=== PATIENT | male | born 1945 | race Caucasian/White ===

== ENCOUNTER 2017-02-01 05:55 | Day surgery (SDC) | payer MEDICARE, OTHER ==
[~2017-02-01] VITALS: Ht 172.7 cm; Wt 83.9 kg
[~2017-02-01 05:55] MED LIST: ARMOUR THYROID60 MG PO; CYCLOBENZAPRINE5 MG PO; HYDROCODON-ACE1 EA11 PO; LISINOPRIL20 MG PO; LORATADINE10 MG PO; RESTASIS1 DROP OD; TRAMADOL HCL50 MG PO
--- NOTE | 2017-02-01 08:20 | NUR ---
02/01/17 0820 Con Kay ORAL AIRWAY OUT @ 0816 0820 PATIENT OXYGEN TITRATED TO ROOM AIR, PATIENT SITTING UP, SIPS WATER, PASSING AIR FROM RECTUM.
--- NOTE | 2017-02-02 17:13 | OR ---
[facility] [address], [place] [address] Signed DATE OF PROCEDURE: 02/01/17 PREOPERATIVE DIAGNOSIS: Personal history of colonic polyps at age 54. POSTOPERATIVE DIAGNOSES Minimal sigmoid diverticulosis. Distal rectal/proximal anal irritation. Moderate internal and external hemorrhoids. PROCEDURE: Colonoscopy with biopsies of the proximal anus. ESTIMATED BLOOD LOSS: None. INDICATIONS Harshal is a 71-year-old gentleman who is retired out of the [employer]. Around age 54, he had a colonoscopy performed back in [place]. He thinks he had colonic polyps removed. He lives down in [place], but comes up to [place] every 4-6 weeks to visit his sister. He also comes to see his primary care provider. He was asked to see me for a colonoscopy. He said he has no lower GI complaints. There is no family history of colon cancer or polyps. In the office, I gave Harshal a pamphlet on colonoscopy. We looked at that together along with the risks including, but not limited to gas bloating, crampy abdominal pain, bleeding, perforation requiring surgery, and missed diagnosis. In addition, we reviewed the need for IV sedation. He does take daily Hydrocodone, Escitalopram, and Tramadol, plus he has some issues with his heart and sleep apnea. Consequently, we asked the anesthesia provider help us with increased monitoring and sedation with Propofol. He had expressed understanding and wished to proceed. PROCEDURE IN DETAIL Harshal was taken in to our endoscopy suite, placed in the left lateral decubitus position. He was given IV sedation with Propofol per our nurse hull grinder. A digital rectal exam was performed and he does have moderate external hemorrhoids. Also, he is a small man of slight build and his anal canal was just wide enough to admit my index finger. His prostate was unremarkable. I did not specifically feel a mass. The adult colonoscope was then introduced and advanced all the way around into the cecum under direct visualization of camera. We had to rotate Harshal into the supine position in order to get the camera into the cecum itself. Overall, his prep was good. He had a couple areas of liquid particulate stool matter, which I suctioned out. The scope was then slowly withdrawn. His colon showed a few diverticula in the sigmoid colon. They were moderate in size few in number and scattered about. We saw no polyps in his colon or rectum. Upon retroflexion of the scope, I could see some irritation at the bottom of the rectum in the proximal anal canal. The scope had been anteflexed and slowly withdrawn. At the proximal portion of the anal canal, it looked a little rough and with Electronically Signed By: MILI RILEY MD 02/02/17 1713 PATIENT NAME: HARSHAL NEWSOME OPERATIVE REPORT DATE OF : 47 PHYSICIAN: MILI RILEY MD REPORT #: [id number] REPORT IS CONFIDENTIAL AND NOT TO BE RELEASED WITHOUT AUTHORIZATION [facility] [address], [place] [address] Signed the irritation, so we went ahead and took a couple biopsies of that area just to make sure everything is fine. After this, the gas was suctioned out and the colonoscope removed. Harshal tolerated the procedure quite well. RECOMMENDATIONS I will see Harshal back in my office in 7-14 days to review his results. If the biopsies are negative, he can consider colonoscopy in 5 years versus 10. MD AFIA Bright/Karyna /[id number] cc: DOIMNGO Bonilla Electronically Signed By: MILI RILEY MD 02/02/17 1713 PATIENT NAME: HARSHAL NEWSOME OPERATIVE REPORT DATE OF : 47 PHYSICIAN: MILI RILEY MD REPORT #: [id number] REPORT IS CONFIDENTIAL AND NOT TO BE RELEASED WITHOUT AUTHORIZATION
== END 2017-02-01 08:36 | disposition home or self-care (01) ==
LOC: DS 05:55 → OPS 05:55 → DS 06:45 → OPS 06:45
PROVIDERS: Colon & Rectal Surgery
PROC: 0DBP8ZX Excision of Rectum, Via Natural or Artificial Opening Endoscopic, Diagnostic (ICD-10-PCS; principal; 2017-02-01 07:15)
DX: Z12.11 Encounter for screening for malignant neoplasm of colon (principal); K62.1 Rectal polyp; K64.4 Residual hemorrhoidal skin tags; K64.8 Other hemorrhoids; K57.30 Diverticulosis of large intestine without perforation or abscess without bleeding; E03.9 Hypothyroidism, unspecified; I10 Essential (primary) hypertension; E78.5 Hyperlipidemia, unspecified; M10.9 Gout, unspecified; F41.9 Anxiety disorder, unspecified; F32.9 Major depressive disorder, single episode, unspecified; Z95.5 Presence of coronary angioplasty implant and graft; Z98.41 Cataract extraction status, right eye; Z86.010 Personal history of colon polyps; Z98.42 Cataract extraction status, left eye; Z98.890 Other specified postprocedural states; Z79.899 Other long term (current) drug therapy
CPT/HCPCS: 00810; 88305; J2704; J7120